=== PATIENT | female | born 1950 | race Caucasian/White ===

== ENCOUNTER 2020-12-23 16:32 | Inpatient (IN) ==
[2020-12-23] MEDS ORDERED: LIDOCAINE 1% 20 ML VIAL ONE (17:00)
[2020-12-23] MEDS ORDERED: MIDAZOLAM 2 MG/2 ML VIAL ONE (17:52)
[2020-12-23] MEDS ORDERED: HYDROmorphone 2 MG/1 ML VIAL ONE (17:53)
[2020-12-23] MEDS ORDERED: diphenhydrAMINE 50 MG/1 ML VIAL ONE (17:57)
[2020-12-23] MEDS ORDERED: HEPARIN 5,000 UNIT/1 ML VIAL ONE (17:58)
[2020-12-23] MEDS ORDERED: NITROGLYCERIN DRIP 50 MG/250 ML BOTTLE IV ONE (18:01)
[2020-12-23] MEDS ORDERED: ZALEPLON 5 MG CAPSULE PO PRN (18:16)
[2020-12-23] MEDS ORDERED: NITROGLYCERIN SL 0.4 MG TABLET SL PRN (18:16)
[2020-12-23] MEDS ORDERED: ONDANSETRON 4 MG/2 ML VIAL IV PRN (18:16)
[2020-12-23] MEDS ORDERED: HEPARIN/NACL 0.9% 2 UNITS/ML 1,000 UNIT/500 ML BAG IV ONE (18:21)
[2020-12-23] MEDS ORDERED: PNEUMOCOCCAL VACCINE (13 VALENT) 0.5 ML SYRINGE IM ONE (18:51)
[2020-12-23 19:34] LABS: High Sensitive Troponin I* 65.1 ng/L (0-54)
[2020-12-23] MEDS: ROSUVASTATIN 20 MG TABLET PO SCH (20:18)
[2020-12-23] MEDS: FAMOTIDINE 20 MG TABLET PO SCH (20:18)
[2020-12-23] MEDS ORDERED: METOPROLOL TARTRATE 25 MG TABLET PO SCH (21:00)
[2020-12-23] MEDS ORDERED: TICAGRELOR 90 MG TABLET PO SCH (21:00)
[2020-12-24 03:37] LABS: Basophils % 0.2 % (0.0-0.8); Hematocrit 39.5 VOL% (35.7-47.0); Hemoglobin 13.3 GM/DL (12.0-16.0); Immature Granulocytes % 0.8 %; Immature Granulocytes Absolute 0.15 #; Lymphocytes # 0.7 10*3/uL (1.4-4.0); Lymphocytes % 3.3 % (21.3-54.2); Mean Corpuscular HGB Conc 33.7 GM/DL (32-36); Mean Corpuscular Volume 89.8 FL (87-102); Mean Platelet Volume 11.1 FL (9.6-12.0); Monocytes % 1.8 % (1.7-12.7); Neutrophils % 93.9 % (38.7-73.9); Platelet Count 227 T/CUMM (130-400); Red Cell Distribution Width 13.6 % (9.3-17.3); White Blood Count 19.8 T/CUMM (4-12)
[2020-12-24 04:12] LABS: Alanine Aminotransferase 29 U/L (13-56); Blood Urea Nitrogen 20 MG/DL (7-18); Calcium 8.5 MG/DL (8.5-10.1); Carbon Dioxide 21 MMOL/L (21-32); Estimated Glom Filtration Rate 79 ML/MIN; Glucose 199 MG/DL (74-106); HDL Cholesterol 46 MG/DL (40-60); Lymphocytes 4 % (20-55); Osmolality,Calculated 285.5 MOS/KG (273-304); Platelet Estimate Adequate; Potassium 4.1 MMOL/L (3.5-5.1); Risk Ratio 3.35; Segmented Neutrophils 95 % (50-85); Sodium 139 MMOL/L (136-145); Total Cells Counted 100; Triglycerides 152 MG/DL (2-150); VLDL Cholesterol 30.4 MG/DL
[2020-12-24] MEDS ORDERED: CLOPIDOGREL 300 MG TABLET PO ONE (07:24)
[2020-12-24] MEDS: ISOSORBIDE MONONITRATE 30 MG TABLET PO SCH (08:03)
[2020-12-24] MEDS: FAMOTIDINE 20 MG TABLET PO SCH ×2 (08:03→20:07)
[2020-12-24] MEDS: ASPIRIN EC 81 MG TABLET PO SCH (08:03)
[2020-12-24] MEDS: METOPROLOL SUCCINATE XL 100 MG TABLET PO SCH (08:03)
[2020-12-24] MEDS: CLOPIDOGREL 75 MG TABLET PO SCH (08:34)
[2020-12-24] MEDS ORDERED: ACETAMINOPHEN 325 MG TABLET PO PRN (09:56)
[2020-12-24] MEDS ORDERED: ENOXAPARIN 40 MG/0.4 ML SYRINGE SUBCUT SCH (12:30)
[2020-12-24] MEDS: ROSUVASTATIN 20 MG TABLET PO SCH (20:08)
[2020-12-24 23:47] LABS: Bacteria,Urine Occasional /HPF (Few); Bilirubin,Urine Negative (Negative); Blood, Urine Negative (Negative); Glucose,Urine (UA) Negative (Negative); Ketones,Urine Negative (Negative); Nitrite,Urine Negative (Negative); Protein,Urine Negative; RBC,Urine 1 /HPF (0-4); Renal Epithelial Cells,Urine Occasional /HPF (<1); Squamous Epithelial Cell,Urine Occasional /HPF (0-10); Urine Appearance CLEAR (Clear); Urine Color Straw (Yellow); Urine Urobilinogen < 2.0 EU/DL (0.2-1.0)
[2020-12-25 05:13] LABS: Basophils % 0.2 % (0.0-0.8); Eosinophils # 0.1 10*3/uL (0.0-0.87); Eosinophils % 0.6 % (0.00-10.9); Hematocrit 37.9 VOL% (35.7-47.0); Hemoglobin 12.7 GM/DL (12.0-16.0); Immature Granulocytes % 0.4 %; Immature Granulocytes Absolute 0.07 #; Lymphocytes # 3.7 10*3/uL (1.4-4.0); Lymphocytes % 23.2 % (21.3-54.2); Mean Corpuscular HGB Conc 33.5 GM/DL (32-36); Mean Corpuscular Volume 89.6 FL (87-102); Monocytes % 5.2 % (1.7-12.7); Neutrophils % 70.4 % (38.7-73.9); Platelet Count 202 T/CUMM (130-400); Red Blood Count 4.23 MC/CUMM (3.8-5.5); Red Cell Distribution Width 13.9 % (9.3-17.3)
[2020-12-25 05:42] LABS: Calcium 8.3 MG/DL (8.5-10.1); Osmolality,Calculated 282.4 MOS/KG (273-304); Potassium 3.9 MMOL/L (3.5-5.1)
[2020-12-25] MEDS: METOPROLOL SUCCINATE XL 100 MG TABLET PO SCH (08:06)
[2020-12-25] MEDS: ASPIRIN EC 81 MG TABLET PO SCH (08:07)
[2020-12-25] MEDS: CLOPIDOGREL 75 MG TABLET PO SCH (08:07)
[2020-12-25] MEDS: ISOSORBIDE MONONITRATE 30 MG TABLET PO SCH (08:07)
[2020-12-25] MEDS: FAMOTIDINE 20 MG TABLET PO SCH (08:07)
== END 2020-12-25 11:04 | disposition home or self-care (01) | DRG 281 ==
LOC: N.CVR 16:32 → N.ICU 18:25
PROVIDERS: ADMIT Internal Medicine Cardiovascular Disease; ATTEND Internal Medicine Cardiovascular Disease
PROC: CLCCHCL (ICD-10-PCS; 2020-12-23 17:15)